=== PATIENT | female | born 1945 | race Caucasian/White ===

== ENCOUNTER → 2017-05-04 | Outpatient (CLI) | payer MEDICARE, OTHER | LOC: COL.RAD 10:50 | DX: E21.3 Hyperparathyroidism, unspecified (principal) | CPT/HCPCS: A9500 ==

== ENCOUNTER → 2018-03-17 | Outpatient (CLI) | payer MEDICARE, OTHER ==
[~2018-03-17] MED LIST: ASPIRIN E.C. 8181 MG PO; DIOVAN HCT 12.51 TA2 PO; LOPID 600M600 MG/TAB PO
== END ==
LOC: MC.RAD 11:17
DX: Z12.31 Encounter for screening mammogram for malignant neoplasm of breast (principal); N63.10 Unspecified lump in the right breast, unspecified quadrant; N64.89 Other specified disorders of breast

== ENCOUNTER → 2018-03-24 | Outpatient (CLI) | payer MEDICARE, OTHER | LOC: MC.RAD 10:24 | DX: N60.01 Solitary cyst of right breast (principal); N60.02 Solitary cyst of left breast | CPT/HCPCS: G0279 ==

== ENCOUNTER → 2018-08-31 | Outpatient (CLI) | payer MEDICARE, OTHER | LOC: COL.RAD 09:23 | DX: N18.3 Chronic kidney disease, stage 3 (moderate) (principal); N26.1 Atrophy of kidney (terminal) ==

== ENCOUNTER → 2019-05-30 | Outpatient (CLI) | payer MEDICARE, OTHER | LOC: MC.RAD 14:30 | DX: Z12.31 Encounter for screening mammogram for malignant neoplasm of breast (principal) ==

== ENCOUNTER → 2020-06-18 | Outpatient (CLI) | payer MEDICARE, OTHER | LOC: MC.RAD 09:48 | DX: N60.02 Solitary cyst of left breast (principal) ==

== ENCOUNTER → 2021-02-04 | Outpatient (CLI) | payer MEDICARE ==
[~2021-02-04] MED LIST changes: +CEPHALEXIN500 M1 PO
== END ==
LOC: DIA.ED 01-28 07:42
DX: R73.03 Prediabetes (principal)
CPT/HCPCS: G0108

== ENCOUNTER → 2021-02-13 | Outpatient (CLI) | payer MEDICARE | LOC: DIA.ED 07:38 | DX: R73.03 Prediabetes (principal); Z79.84 Long term (current) use of oral hypoglycemic drugs; N18.9 Chronic kidney disease, unspecified ==